=== PATIENT | male | born 1975 | race Hispanic/Latino ===

== ENCOUNTER 2016-11-22 11:13 | Day surgery (SDC) | payer OTHER ==
[~2016-11-22 11:13] MED LIST: ANCEF/STERILE WATER 2 GM/20 ML IV NR; HEPARIN SUB-Q NR
--- NOTE | 2016-11-22 12:22 | Anesthesia Consultation ---
<RHIANNON HERNANDEZ - Last Filed: 11/22/16 12:11> Anesthesia Consult and Med Hx Date of service: 11/22/16 (Scheduled for lap umbilical hernia ) - Airway Anesthetic Teeth Evaluation: Good, Chipped (Chipped right upper molar) ROM Head & Neck: Adequate Mental/Hyoid Distance: Adequate Mallampati Class: Class III Intubation Access Assessment: Possibly Difficult - Pulmonary Exam CTA: Yes - Cardiac Exam Cardiac Exam: RRR - Pre-Operative Health Status ASA Pre-Surgery Classification: ASA2 Proposed Anesthetic Plan: General - Pre-Anesthesia Comment Pre-Anesthesia Comments: No previous anesthesia complications. - Pulmonary Hx Smoking: No Hx Sleep Apnea: Yes (+ CPAP) - Cardiovascular System Hx Hypertension: No - Central Nervous System Hx Psychiatric Problems: No - Gastrointestinal Hx Ulcer: Yes Hx Gastroesophageal Reflux Disease: Yes (Took pepcid this am) - Endocrine Hx Renal Disease: No Hx Insulin Dependent Diabetes: No Hx Thyroid Disease: No - Other Systems Hx Cancer: No Hx Obesity: Yes (CLass III- BMI 46.8) - Additional Comments Anesthesia Medical History Comments: hyperlipidemia <RYLIE ASCENCIO - Last Filed: 11/22/16 13:21> Anesthesia Consult and Med Hx - Additional Comments Anesthesia Medical History Comments: [place] wears hearing aid
[2016-11-22] MEDS ORDERED: SUBLIMAZE ONE (12:28)
[2016-11-22] MEDS ORDERED: DECADRON ONE (12:28)
[2016-11-22] MEDS ORDERED: ZOFRAN ONE ×2 (12:28→14:13)
[2016-11-22] MEDS ORDERED: REGLAN ONE ×2 (12:28→14:11)
[2016-11-22] MEDS ORDERED: ROBINUL ONE (12:28)
[2016-11-22] MEDS ORDERED: XYLOCAINE MPF 2% ONE (12:28)
[2016-11-22] MEDS ORDERED: ZEMURON IV ONE (12:28)
[2016-11-22] MEDS ORDERED: NEOSTIGMINE ONE (12:28)
[2016-11-22] MEDS ORDERED: QUELICIN ONE (12:28)
[2016-11-22] MEDS ORDERED: DIPRIVAN 10 MG/ML IV ONE (12:28)
[2016-11-22] MEDS ORDERED: NACL 0.9% 1000 ML 1,000 ML IV SCH (13:00)
[2016-11-22] MEDS ORDERED: VERSED IV NR (13:00)
[2016-11-22] MEDS ORDERED: PEPCID PO NR ×2 (13:00)
[2016-11-22] MEDS ORDERED: PERCOCET 5/325 PO PRN (13:18)
[2016-11-22] MEDS ORDERED: ZOFRAN IV PRN (13:18)
[2016-11-22] MEDS ORDERED: TORADOL IV PRN (13:18)
[2016-11-22] MEDS ORDERED: NEO SYNEPHRINE/NS Syringe(OR USE) IV ONE (13:21)
--- NOTE | 2016-11-22 13:22 | Anesthesia Day of Surgery ---
Anesthesia Day of Surgery - Day of Surgery Patient Examined: Yes Patient H&P Reviewed: Yes Patient is NPO: Yes Beta Blockers: No Cardiac Clearance: No Pulmonary Clearance: No
[2016-11-22] MEDS ORDERED: LACTATED RINGERS 1,000 ML IV SCH (14:00)
[2016-11-22] MEDS ORDERED: ePHEDrine SULFATE ONE (14:14)
[2016-11-22] MEDS ORDERED: NACL 0.9% IR ONE (14:15)
[2016-11-22] MEDS ORDERED: MARCAINE-EPI 0.25%-1:200,000 INFILTRATI ONE (14:15)
--- NOTE | 2016-11-22 15:20 | Short Stay Summary ---
Short Stay Documentation Date of service: 11/22/16 - Allergies and Medications Current Medications: Allergies milk Adverse Reaction (Verified 11/16/16 10:08) UPSET STOMACH Home Medications Medication Instructions Recorded Confirmed Last Taken Type Cetirizine HCl [ZyrTEC] 10 mg PO QDAY 11/16/16 11/22/16 11/22/16 History Fluticasone [Flonase] 1 spray NS QDAY 11/16/16 11/22/16 11/22/16 History Montelukast [Singulair] 10 mg PO QDAY 11/16/16 11/22/16 11/22/16 History Multivitamin Tab [Multiple Vitamin 1 each PO QDAY 11/16/16 11/22/16 11/21/16 History TAB (Theragran)] [place]-3S/Dha/Epa/Fish Oil [Fish 1 each PO QDAY 11/16/16 11/22/16 11/21/[address] 1,000 mg Softgel] Omeprazole 40 mg PO QDAY 11/16/16 11/22/16 11/22/16 History guaiFENesin [Mucinex] 600 mg PO QDAY 11/16/16 11/22/16 11/22/16 History Active Medications Cefazolin Sodium (Ancef/Sterile Water 2 Gm/20 Ml) 2 gm IV PREOP NR Stop: 11/22/16 23:59 Famotidine (Pepcid) 20 mg PO PREOP NR Stop: 11/22/16 23:59 Heparin Sodium (Porcine) (Heparin) 5,000 unit SUB-Q PREOP NR Stop: 11/22/16 23:59 Last Admin: 11/22/16 12:07 Dose: 5,000 unit Hydromorphone HCl (Dilaudid) 0.25 mg IV Q10MIN PRN PRN Reason: Pain, Moderate (4-6) Stop: 11/22/16 20:00 Sodium Chloride (Nacl 0.9% 1000 Ml) 1,000 mls @ 100 mls/hr IV DIRECT PAULO Last Admin: 11/22/16 12:30 Dose: 100 mls/hr Lactated Ringer's (Lactated Ringers) 1,000 mls @ 100 mls/hr IV DIRECT PAULO Ketorolac Tromethamine (Toradol) 30 mg IV ONCE PRN PRN Reason: Pain, Moderate (4-6) Stop: 11/22/16 20:00 Midazolam HCl (Versed) 2 mg IV PREOP NR Stop: 11/22/16 23:59 Last Admin: 11/22/16 12:31 Dose: 2 mg Ondansetron HCl (Zofran) 4 mg IV ONCE PRN PRN Reason: Nausea And Vomiting Stop: 11/22/16 20:00 Oxycodone/Acetaminophen (Percocet 5/325) 1 tab PO ONCE PRN PRN Reason: Pain, Moderate (4-6) Stop: 11/22/16 20:00 - Brief post op/procedure progress note Date of procedure: 11/22/16 Pre-op diagnosis: Incarcerated ventral hernia Post-op diagnosis: other (Incarcerated ventral hernia and umbilical hernia) Procedure: Laparoscopic incarcerated ventral and umbilica hernia repair with mesh Anesthesia: ROXI, local Surgeon: LEIDA SCHMIDT [employer] Representative: KTAHY WHITE Estimated blood loss: none Pathology: none Condition: stable - Disposition Condition at discharge: Good Disposition: DISCHARGED TO HOME OR SELFCARE Short Stay Discharge Plan Activity: no restrictions Diet: regular Wound: remove dressing (11/24/16 and then may shower), other (Abdominal binder at all times except showering) Follow up with: TOSIN MACIAS [Other] - 7 Days LEIDA SCHMIDT MD [Staff Physician] - 7 Days Prescriptions: oxyCODONE /ACETAMINOPHEN [Percocet 5/325] 1 - 2 tab PO Q4HR PRN #40 tab PRN Reason: Pain
[2016-11-22] MEDS: DILAUDID IV PRN ×8 (15:35→16:55)
--- NOTE | 2016-11-22 15:55 | Post Anesthesia Evaluation ---
- Post Anesthesia Evaluation Patient Participated: Yes Airway Patent: Yes Stable Respiratory Function: Yes Nausea/Vomiting: No Temp > 96.8F: Yes Pain Manageable: Yes Adequeate Hydration: Yes Anesthesia Complications: No Block Receding Appropriately: Not Applicable Patient on Ventilator: No
[2016-11-22] MEDS ORDERED: TRANSDERM-SCOP TD ONE (15:56)
--- NOTE | 2016-11-22 16:04 | Operative Report ---
PREOPERATIVE DIAGNOSIS: Incarcerated ventral hernia. POSTOPERATIVE DIAGNOSES: Incarcerated ventral hernia and umbilical hernia. PROCEDURE: Laparoscopic incarcerated ventral hernia and umbilical hernia repair with mesh. SURGEON: Dejan Bowman M.D. PARKER: Dr. Plaza. ANESTHESIA: General and local. ESTIMATED BLOOD LOSS: Minimal. SPECIMEN: None. IMPLANTS: Mesh 6 x 8 Parietex. COMPLICATIONS: None. INDICATIONS: This is a 41-year-old male, who has a symptomatic incarcerated ventral hernia, presents now for repair. OPERATIVE COURSE: The patient was brought to the operating room, identified, and placed in the supine position. General anesthesia was achieved. His abdomen was prepped and draped in usual manner. Prior to all incisions, the area was infiltrated with 0.25% Marcaine. A left lateral 5 mm incision was made using Veress needle technique. The abdomen was insufflated to 15 mmHg pressure. A 5 mm trocar was inserted using a 30-degree 5-mm telescope. The trocars were placed under direct vision, which included a left subcostal 10 mm port, a left lower quadrant 5 mm port. The abdomen was explored. He was found to have omentum incarcerated in the ventral hernia. This was reduced out of the abdominal cavity with care being taken to make sure we also reduced the hernia sac. This was done with a combination of blunt, sharp, and cautery dissection. It was that he also had an umbilical hernia, which was separate from this ventral hernia. Both hernia defects were rather small in size, but by around 3 cm. We took down the urachal folds and falciform ligament with a combination of sharp, blunt and cautery dissection until we had the hernias completely exposed and the abdominal wall, smooth and flat. We then introduced a 6 inch x 8 inch Parietex DualMesh orienting the smooth surface against the viscera and leaving the rough surface against the abdominal wall. This was oriented properly, so we covered the defects well and we tacked around the periphery of the mesh and then around the periphery of the defects and then reattached the falciform ligament and urachal folds over the top of the mesh. We had a good overlap between the edge of the defects and the edge of the mesh at all locations over 5 cm. There were no signs of bleeding. No other pathology was seen. We removed the ports under direct vision. No signs of bleeding from the port sites. We then evacuated the CO2 and closed all the incisions with a 4-0 Vicryl suture, Steri-Strips and Band-Aids. Gauze was placed on the abdominal wall over the old hernia sites, taped in place and then it was wrapped with an abdominal binder prior to extubation to help reduce postoperative seroma formation and help with pain control. He tolerated the procedure well and without complications. JOB# [id number] BSAlbina/MIKE
[2016-11-22 18:02] VITALS: BP 142/73
== END 2016-11-22 17:55 | disposition home or self-care (01) ==
LOC: OR 11:13
PROVIDERS: ATTEND Surgery
DX: K43.6 Other and unspecified ventral hernia with obstruction, without gangrene (principal); K42.9 Umbilical hernia without obstruction or gangrene; K21.9 Gastro-esophageal reflux disease without esophagitis; G47.30 Sleep apnea, unspecified; I10 Essential (primary) hypertension; E66.9 Obesity, unspecified; Z68.42 Body mass index [BMI] 45.0-49.9, adult; Z98.890 Other specified postprocedural states; Z87.11 Personal history of peptic ulcer disease; Z80.0 Family history of malignant neoplasm of digestive organs; Z80.1 Family history of malignant neoplasm of trachea, bronchus and lung; Z80.41 Family history of malignant neoplasm of ovary; Z83.3 Family history of diabetes mellitus
CPT/HCPCS: 49653; C1781; J0330; J1100; J1170; J1644; J1885; J2250; J2370; J2405; J2704; J2710; J2765; J3010; J7030; J7120